=== PATIENT | male | born 1955 | race Caucasian/White ===

== ENCOUNTER 2019-04-22 14:50 | Day surgery (SDC) | payer MEDICARE ==
[~2019-04-22] VITALS: Ht 180.3 cm; Wt 115.7 kg
[2019-04-22] VITALS (7 sets, daily range): BP systolic 127–155; BP diastolic 64–99
[2019-04-22] MEDS ORDERED: diphenhydrAMINE 25mg capsule PO PRN (15:25)
[2019-04-22] MEDS ORDERED: normal saline 1,000 ML IV SCH (15:25)
[2019-04-22] MEDS ORDERED: LORazepam 0.5 MG tablet PO PRN (15:25)
[2019-04-22] MEDS ORDERED: GABA-532 PO (16:07)
[2019-04-22] MEDS ORDERED: CARV-50 PO (16:07)
[2019-04-22] MEDS ORDERED: FURO-150 PO (16:07)
[2019-04-22] MEDS ORDERED: SODI325T PO (16:07)
[2019-04-22] MEDS ORDERED: ALBU18HF2 INH (16:07)
[2019-04-22] MEDS ORDERED: CHOL50004 PO (16:07)
[2019-04-22] MEDS ORDERED: PHO667C PO (16:07)
[2019-04-22] MEDS ORDERED: CYCL-1 PO (16:07)
[2019-04-22] MEDS ORDERED: LINA5TAB4 PO (16:07)
[2019-04-22] MEDS ORDERED: ATOR10TA70 PO (16:07)
[2019-04-22] MEDS ORDERED: DOXA4TAB2 PO (16:07)
[2019-04-22] MEDS ORDERED: midazolam 2 mg/2 ml injection ONE (16:34)
[2019-04-22] MEDS ORDERED: fentaNYL/PF 50MCG/1 ML 2ML syringe ONE (16:34)
[2019-04-22] MEDS ORDERED: LIDOcaine 1% (10mg/ml)w/preservative injection 20ml MDV ONE (16:34)
[2019-04-22] MEDS ORDERED: iohexol 350MG/ML 100ml bottle IV ONE (16:35)
[2019-04-22] MEDS ORDERED: ondansetron/PF 4mg/2ml inj IV PRN (18:35)
[2019-04-22] MEDS ORDERED: HYDROcodone/acetaminophen 10/325mg tab PO PRN (18:35)
[2019-04-22] MEDS ORDERED: proCHLORperazine 10 MG/2 ml inj IV PRN (18:35)
[2019-04-22] MEDS ORDERED: OXAZEpam 15mg capsule PO PRN (18:35)
[2019-04-22] MEDS ORDERED: HYDROcodone/acetaminophen 5mg/325mg tablet PO PRN (18:35)
== END 2019-04-22 20:05 | disposition home or self-care (01) ==
LOC: SSTAY O 14:50
PROVIDERS: ATTEND Internal Medicine Interventional Cardiology
DX: Z01.810 Encounter for preprocedural cardiovascular examination (principal); I79.0 Aneurysm of aorta in diseases classified elsewhere; E11.9 Type 2 diabetes mellitus without complications; E78.5 Hyperlipidemia, unspecified; I10 Essential (primary) hypertension; F17.210 Nicotine dependence, cigarettes, uncomplicated; Z79.899 Other long term (current) drug therapy
CPT/HCPCS: 93005; 93454; 99152; C1769; J1644; J2001; J2250; J3010; J7030; Q0163; Q9967; 93458; A6258

== ENCOUNTER 2021-12-21 10:52 | Day surgery (SDC) | payer MEDICARE ==
[~2021-12-21] VITALS: Ht 180.3 cm; Wt 121.2 kg
[~2021-12-21 10:52] MED LIST: ALBU18HF2 INH; ATOR10TA70 PO; CARV-50 PO; CHOL50004 PO; CYCL-1 PO; DOXA4TAB2 PO; FURO-150 PO; GABA-532 PO; LINA5TAB4 PO; PHO667C PO; SODI325T PO
[2021-12-21 11:24] VITALS: BP 175/84
[2021-12-21] MEDS ORDERED: normal saline 1000ml 1,000 ML IV PRN (11:25)
[2021-12-21 11:57] LABS: BASOPHILS % (AUTO) 0.6 % (0-1); EOSINOPHILS # (AUTO) 0.5 X10'3 (0-0.9); EOSINOPHILS % (AUTO) 11.8 % (0-6); HEMATOCRIT 33.9 % (42.0-52.0); HEMOGLOBIN 11.7 g/dl (14.0-17.9); LYMPHOCYTES # (AUTO) 0.7 X10'3 (1.1-4.8); LYMPHOCYTES % (AUTO) 16.5 % (21-51); MEAN CORPUSCULAR HEMOGLOBIN 32.8 PG (27.0-31.0); MEAN CORPUSCULAR HGB CONC 34.7 g/dL (33.0-36.5); MEAN CORPUSCULAR VOLUME 94.7 FL (78-98); MEAN PLATELET VOLUME 7.8 FL (7.4-10.4); MONOCYTES # (AUTO) 0.3 X10'3 (0-0.9); MONOCYTES % (AUTO) 7.1 % (2-12); NEUTROPHILS # (AUTO) 2.8 X10'3 (1.8-7.7); PLATELET COUNT 125 X10'3 (140-440); RED BLOOD COUNT 3.58 X10'6 (4.70-6.10); WHITE BLOOD COUNT 4.3 X10'3 (4.5-11.0)
[2021-12-21 12:11] LABS: ALBUMIN 4.1 G/DL (3.4-5.0); ANION GAP 5 (8-16); BLOOD UREA NITROGEN 27 MG/DL (7-18); BUN/CREATININE RATIO 4.2 (5.4-32.0); CALCIUM 8.4 MG/DL (8.5-10.1); CHLORIDE 99 MMOL/L (99-107); GLUCOSE 120 MG/DL (70-104); SODIUM 138 MMOL/L (135-145); TOTAL CARBON DIOXIDE 33.6 MMOL/L (24-32); eGFR 9 ML/MIN
[2021-12-21] MEDS ORDERED: LOSA100T57 PO (12:17)
[2021-12-21] MEDS ORDERED: METO25TA6 (12:17)
[2021-12-21] MEDS ORDERED: LIDOcaine 1%/PF 5ML 10 MG/ML VIAL ONE (12:18)
[2021-12-21] MEDS ORDERED: midazolam 1 mg/ML 2ml injection ONE (12:18)
[2021-12-21] MEDS ORDERED: heparin 25,000 UNIT/250ml bag 0 ML IV ONE (12:19)
[2021-12-21] MEDS ORDERED: fentaNYL/PF 50MCG/1 ML 2ML syringe ONE (12:19)
[2021-12-21] MEDS ORDERED: heparin 1,000 UNITS/NS 500ml 500 ML ONE (12:35)
[2021-12-21 13:23] VITALS: BP 174/73
== END 2021-12-21 13:45 | disposition home or self-care (01) ==
LOC: SSTAY O 10:52
PROVIDERS: ATTEND Preventive Medicine Aerospace Medicine
DX: T82.41XA Breakdown (mechanical) of vascular dialysis catheter, initial encounter (principal); N18.9 Chronic kidney disease, unspecified; Y83.8 Other surgical procedures as the cause of abnormal reaction of the patient, or of later complication, without mention of misadventure at the time of the procedure; Z79.01 Long term (current) use of anticoagulants
CPT/HCPCS: 36415; 36901; 76937; 80048; 85025; 85610; C1894; J1644; J2250; J3010; J3490; J7030; A4620